=== PATIENT | female | born 1960 | race Caucasian/White ===

== ENCOUNTER 2017-08-30 05:13 | Emergency (ER) | payer BC ==
[2017-08-30 05:34] VITALS: TEMP 98.3; BMI 29.8
--- NOTE | 2017-08-30 06:34 | PDOC ---
History of Present Illness - General Chief Complaint: Pain Stated Complaint: ABDOMINAL PAIN, VOMITING Time Seen by Provider: 08/30/17 05:56 History Source: Patient Exam Limitations: No Limitations - History of Present Illness Travel History: No Initial Comments: 08/30/17 06:30 57yo Female patient w/ PmHx: Hypothyroidism, Hyperparathyroidism, Hypercalcemia , Arthritis, Osteopenia presents to ED c/o RLQ Abdominal pain the began as sudden onset at 430am this morning. Patient reports vomiting x 2. She denies fever, back pain, CP, diff breathing, dysuria, hematuria, or any other complaints. Patient reported when she urinates they symptoms subside for a short period of time. LNMP: 5 years ago. Timing/Duration: reports: constant. denies: getting worse, changing over time, intermittent, resolved prior to arrival, gone now, other Quality: reports: moderate. denies: mild, severe, aching, burning, cramping, dullness, fullness, sharpness, stabbing, throbbing, other Abdominal Pain Onset Location: reports: RUQ. denies: LUQ, RLQ, LLQ, epigastric , periumbilical, suprapubic, generalized abdomen, flank, unknown, other Pain Radiation: reports: no radiation. denies: RUQ, LUQ, RLQ, LLQ, epigastric, periumbilical, flank, groin, scapula, shoulder, chest, back, other Activities at Onset: reports: sleep. denies: none, exertion, emotional upset, rest, no specific activity, eating, working, sexual intercourse, other Past History - Travel Traveled outside of the country in the last 30 days: No Close contact w/someone who was outside of country & ill: No - Past Medical History Allergies/Adverse Reactions: Allergies Allergy/AdvReac Type Severity Reaction Status Date / Time codine Allergy Difficulty Uncoded 08/30/17 05:36 Breathing Home Medications: Ambulatory Orders Aspirin [ASA -] 162 mg PO DAILY 04/04/15 Levothyroxine [Synthroid -] 0.125 mcg PO DAILY 04/04/15 Cardiac Disorders: Yes (MVP) Thyroid Disease: Yes - Suicide/Smoking/Psychosocial Hx Smoking Status: Yes Smoking History: Never smoked Have you smoked in the past 12 months: No Number of Cigarettes Smoked Daily: 10 Information on smoking cessation initiated: No 'Breaking Loose' booklet given: 04/04/15 Hx Alcohol Use: No Drug/Substance Use Hx: No Substance Use Type: None Review of Systems - Review of Systems Able to Perform ROS?: Yes Is the patient limited [place] proficient: No Constitutional: No: Chills, Fever ABD/GI: Yes: Nausea, Vomiting, Abdominal cramping. No: Diarrhea Musculoskeletal: No: Back Pain All Other Systems: Reviewed and Negative *Physical Exam - Vital Signs Last Vital Signs Temp Pulse Resp BP Pulse Ox 98.3 F 59 L 18 159/94 99 08/30/17 05:26 08/30/17 05:26 08/30/17 05:26 08/30/17 05:26 08/30/17 05:26 - Physical Exam General Appearance: Yes: Nourished, Appropriately Dressed. No: Apparent Distress, Mild Distress, Moderate Distress, Severe Distress Neck: positive: Trachea midline, Supple. negative: Rigid, Stridor, Lymphadenopathy (R), Lymphadenopathy (L) Respiratory/Chest: positive: Lungs Clear, Normal Breath Sounds. negative: Chest Tender, Respiratory Distress, Accessory Muscle Use, Labored Respiration, Rapid RR, Decreased Breath Sounds, Paradoxal Breathing, Rhonchi, Stridor, Wheezing Cardiovascular: positive: Regular Rhythm, Regular Rate Gastrointestinal/Abdominal: positive: Normal Bowel Sounds, Soft. negative: Tender, Decreased BS, Distended, Guarding, Rebound, Tenderness Musculoskeletal: positive: Normal Inspection. negative: CVA Tenderness, Decreased Range of Motion, Vertebral Tenderness Extremity: positive: Normal Capillary Refill, Normal Inspection, Normal Range of Motion. negative: Pedal Edema, Swelling, Calf Tenderness, Erythema, Inflammation Integumentary: positive: Normal Color, Dry, Warm. negative: Pale, Cold, Clammy , Diaphoresis Neurologic: positive: product development manager II-XII NML intact, Fully Oriented, Alert, Normal Mood/ Affect, Normal Response, Motor Strength 5/5 *DC/Admit/Observation/Transfer - Discharge Dispostion Condition at time of disposition: Guarded - Referrals - Patient Instructions - Post Discharge Activity
[2017-08-30 07:03] LABS: BASO # 0.1 # (0.1-1); BASO % 0.8 % (0-2.0); EOS # 0.1 # (0-4.5); EOS % 0.9 % (0-4.5); LYMPH # 2.5 (8-40); MCHC 33.7 g/dl (32.0-36.0); MEAN CELL VOLUME 92.1 fl (80-96); MEAN PLT VOLUME 7.8 fl (7.5-11.1); MONO # 0.5 # (3.8-10.2); NEUT # 6.5 # (42.8-82.8); NEUT % 67.1 % (42.8-82.8); PLATELET COUNT 267 K/MM3 (134-434); WHITE BLOOD COUNT 9.6 K/mm3 (4.0-10.0)
[2017-08-30 07:06] LABS: URINE APPEARANCE SLCLOUDY; URINE BILIRUBIN NEGATIVE (NEGATIVE); URINE BLOOD 2+ (NEGATIVE); URINE COLOR YELLOW; URINE GLUCOSE (UA) NEGATIVE (NEGATIVE); URINE KETONE NEGATIVE (NEGATIVE); URINE LEUK ESTERASE NEGATIVE (NEGATIVE); URINE NITRITE NEGATIVE (NEGATIVE); URINE PROTEIN NEGATIVE (NEGATIVE); URINE UROBILINOGEN NEGATIVE mg/dL (0.2-1.0)
[2017-08-30 07:21] LABS: CALCIUM OXALATE CRYSTALS MANY /hpf (NONE SEEN); URINE BACTERIA RARE /hpf (NONE SEEN); URINE HYALINE CAST 3 /lpf; URINE MUCUS RARE; URINE RBC 15 /hpf (0-3); URINE WBC 1 /hpf (3-5)
[2017-08-30 07:28] LABS: ALBUMIN 3.7 g/dl (3.4-5.0); ALK PHOS 45 U/L (45-117); ANION GAP 5 (8-16); BILIRUBIN,TOTAL 0.2 mg/dL (0.2-1.0); CALCIUM 9.9 mg/dL (8.5-10.1); CO2 27 mmol/L (21-32); CREATININE 0.7 mg/dL (0.55-1.02); GLUCOSE,RANDOM 93 mg/dL (74-106); SGOT/AST 19 U/L (15-37); SGPT/ALT 22 U/L (12-78); TOT PROT 6.1 g/dl (6.4-8.2)
--- NOTE | 2017-08-30 07:47 | PDOC ---
*Physical Exam - Vital Signs Last Vital Signs Temp Pulse Resp BP Pulse Ox 98.3 F 59 L 18 159/94 99 08/30/17 05:26 08/30/17 05:26 08/30/17 05:26 08/30/17 05:26 08/30/17 05:26 - Physical Exam General Appearance: Yes: Appropriately Dressed. No: Apparent Distress HEENT: positive: Normal ENT Inspection Neck: positive: Trachea midline, Supple Respiratory/Chest: positive: Lungs Clear, Normal Breath Sounds. negative: Respiratory Distress, Accessory Muscle Use Cardiovascular: positive: Regular Rhythm, Regular Rate, S1, S2. negative: Edema , Murmur Gastrointestinal/Abdominal: positive: Normal Bowel Sounds, Soft. negative: Tender, Organomegaly Musculoskeletal: positive: Normal Inspection. negative: CVA Tenderness Extremity: positive: Normal Inspection Integumentary: positive: Normal Color, Dry, Warm Neurologic: positive: convertible sofa bedspring tester II-XII NML intact, Fully Oriented, Alert, Normal Mood/ Affect, Normal Response ED Treatment Course - LABORATORY CBC & Chemistry Diagram: 08/30/17 06:45 08/30/17 06:45 - ADDITIONAL ORDERS Additional order review: Laboratory Results 08/30/17 06:45 Urine Color Yellow Urine Appearance Slcloudy Urine pH 5.0 Ur Specific [place] 1.018 Urine Protein Negative Urine Glucose (UA) Negative Urine Ketones Negative Urine Blood 2+ H Urine Nitrite Negative Urine Bilirubin Negative Urine Urobilinogen Negative Urine WBC (Auto) 1 Urine RBC (Auto) 15 Ur Epithelial Cells Rare Calcium Oxalate Crystal Many Urine Bacteria Rare Hyaline Casts 3 Urine Mucus Rare 08/30/17 06:45 RBC 4.30 MCV 92.1 MCHC 33.7 RDW 13.0 MPV 7.8 Neutrophils % 67.1 D Lymphocytes % 26.2 D Monocytes % 5.0 Eosinophils % 0.9 Basophils % 0.8 Medical Decision Making - Medical Decision Making 08/30/17 07:42 Received signout from JERED Tidwell on a 57 year old woman presents today with sudden onset right lower quadrant pain. Patient states she was sleeping and was awoken by a sharp pressure in her right lower quadrant. At present pain is minimal with a rating of 2/10 and a vague feeling of soreness that radiates from the right flank to the right lower quadrant. Patient states relief of symptoms after voiding. Patient states relief from nausea which she had at the onset of pain. Abdomen is soft nontender nondistended. Normoactive bowel sounds. No CVA tenderness elicited. Patient is currently pending results of testing done by outgoing [facility]. Differential diagnosis include: appendicitis, renal calculi, PID, ovarian cyst, ovarian torsion. Less likely PID is patient states she is in a monogamous relationship and has not experienced any vaginal discharge or pain. Less likely ovarian cyst or torsion given that pain spontaneously resolved. Sure comes back without any findings I will perform a CT abdomen and pelvis with by mouth and IV contrast to evaluate for appendicitis. 08/30/17 08:46 Labs remarkable for microhematuria. Patient is currently asymptomatic. Patient is requesting not to have CAT scan is is afraid of the radiation from multiple previous doses. I will discharge the patient with strainer and follow-up with . I discussed the physical exam findings, ancillary test results and final diagnoses with the patient. I answered all of the patient's questions. The patient was satisfied with the care received and felt comfortable with the discharge plan and treatment plan. The patient will call her doctor within 96 hours to arrange follow-up and will return to the Emergency Department with any new, persistent or worsening symptoms. *DC/Admit/Observation/Transfer Diagnosis at time of Disposition: Hematuria Qualifiers: Hematuria type: unspecified type Qualified Code(s): R31.9 - Hematuria, unspecified - Discharge Dispostion Disposition: HOME Condition at time of disposition: Guarded Admit: No - Referrals Referrals: Paco Lai MD., MD [Staff Physician] - - Patient Instructions Additional Instructions: Use strainer for all episodes of emptying of your bladder for the next 1 day. If you notice a kidney stone in the strainer, bring it to your doctor for examination. You've been given a referral for a urologist. If he noticed a kidney stone please bring to urologist for further evaluation. Return to emergency department for pain in the lower back, lower abdominal pain , difficulty urinating, burning while urinating or any other concerns. Thank you very much for choosing us to provide your emergent healthcare needs. - Post Discharge Activity
[2017-08-30 08:53] VITALS: BP 147/94; PULSE 91
[2017-08-30 17:54] LABS: URINE LEUK ESTERASE Negative (NEGATIVE)
== END 2017-08-30 08:52 | disposition home or self-care (01) ==
LOC: JER 05:13
DX: R31.9 Hematuria, unspecified (principal); E03.9 Hypothyroidism, unspecified; E21.3 Hyperparathyroidism, unspecified; E83.52 Hypercalcemia
CPT/HCPCS: 36415; 80053; 81003; 81015; 85025; 87086; 99282-25

== ENCOUNTER 2020-10-11 11:49 | Emergency (ER) | payer BC | END 2020-10-11 12:00 | disposition home or self-care (01) | LOC: JVIRT 11:49 | DX: U07.1 COVID-19 (principal) | CPT/HCPCS: C9803; G2012-GT; U0003 ==